=== PATIENT | female | born 1975 | race Caucasian/White ===

== ENCOUNTER 2017-02-01 05:46 | Day surgery (SDC) | payer OTHER ==
--- NOTE | 2017-01-31 16:34 | GHP ---
[f rep st] PREOP HISTORY AND PHYSICAL DATE OF ADMISSION: 02/01/2017 CHIEF COMPLAINT: Left plantar heel pain. HISTORY OF PRESENT ILLNESS: The patient is a 41-year-old with a history of persistent left plantar heel pain. She has had an exhaustive course of nonoperative treatment without any resolution of her symptoms. PAST MEDICAL HISTORY: Positive for asthma, depression, and sleep apnea. PAST SURGICAL HISTORY: Positive for carpal tunnel release. SOCIAL HISTORY: Negative for tobacco use. FAMILY HISTORY: Noncontributory. MEDICATIONS: Positive for citalopram, Claritin, and Low-Ogestrel. ALLERGIES: Augmentin, grass pollen, mold, penicillins, sulfa, and Zithromax. PHYSICAL EXAMINATION: GENERAL: She is normal appearing in health, in no acute distress. HEENT: Head is normocephalic. Pupils equal, round, reactive to light. Extraocular eye movements intact. NECK: Supple. No JVD or lymphadenopathy. CHEST: Clear to auscultation. HEART: Regular rate and rhythm. No murmurs or gallops. ABDOMEN: Soft, nontender, nondistended. GENITAL/RECTAL/BREAST: Deferred. EXTREMITIES: Approximately 10 degrees gastroc contracture. She has tenderness on the plantar aspect of her heel. ASSESSMENT: 1. Recalcitrant plantar fasciitis. 2. Left gastrocnemius contracture. PLAN: The patient is scheduled to undergo a gastrocnemius recession. /[id number]/MODL MTDD
[2017-02-01] MEDS ORDERED: CLINDAMYCIN 600 MG/DEXTROSE 50 ML IV ONE (06:00)
[2017-02-01] MEDS ORDERED: LIDOCAINE 1% 2 ML INJ ONE (06:14)
[2017-02-01] MEDS ORDERED: LR 1,000 ML IV ONE (06:19)
[2017-02-01] MEDS ORDERED: LIDOCAINE 1% 2 ML INJ ID PRN (06:19)
[2017-02-01] MEDS ORDERED: BUPIVACAINE 0.5% 30 ML SDV ONE (06:55)
[2017-02-01] MEDS ORDERED: MIDAZOLAM 2 MG/2 ML VIAL ONE (07:09)
[2017-02-01] MEDS ORDERED: ONDANSETRON 4 MG/2 ML VIAL ONE ×2 (07:11→09:52)
[2017-02-01] MEDS ORDERED: DEXAMETHASONE 4 MG/ML VIAL ONE (07:11)
[2017-02-01] MEDS ORDERED: KETOROLAC 30 MG/1 ML SDV ONE (07:11)
[2017-02-01] MEDS ORDERED: LIDOCAINE 2% 5 ML SDV ONE (07:11)
[2017-02-01] MEDS ORDERED: PROPOFOL 200 MG/20 ML VIAL ONE (07:12)
[2017-02-01] MEDS ORDERED: fentaNYL 100 MCG/2 ML INJ ONE ×2 (07:12→08:40)
[2017-02-01] MEDS ORDERED: MIDAZOLAM 2 MG/2 ML VIAL IVP ONE (07:16)
--- NOTE | 2017-02-01 07:18 | PDANEPAE ---
ANE History of Present Illness gastroc ANE Past Medical History - Cardiovascular History Hx Hypertension: No Hx Arrhythmias: No Hx Chest Pain: No Hx Coronary Artery / Peripheral Vascular Disease: No Hx CHF / Valvular Disease: No Hx Palpitations: No - Pulmonary History Hx COPD: No Hx Asthma/Reactive Airway Disease: No Hx Recent Upper Respiratory Infection: No Hx Oxygen in Use at Home: No - Neurologic History Hx Cerebrovascular Accident: No Hx Seizures: No Hx Dementia: No - Endocrine History Hx Diabetes: No - Renal History Hx Renal Disorders: No - Liver History Hx Hepatic Disorders: No - Neurological & Psychiatric Hx Hx Neurological and Psychiatric Disorders: Yes - Cancer History Hx Cancer: No - Congenital Disorder History Hx Congenital Disorders: No - GI History Hx Gastrointestinal Disorders: No - Chronic Pain History Chronic Pain: No ANE Review of Systems Review of systems is: negative - Exercise capacity METS (RN): 4 METS ANE Patient History - Allergies Allergies/Adverse Reactions: amoxicillin [From Augmentin] Allergy (Severe, Verified 01/31/17 16:23) Hives clavulanic acid [From Augmentin] Allergy (Severe, Verified 01/31/17 16:23) Hives Penicillins Allergy (Severe, Verified 01/31/17 16:23) Hives Sulfa (Sulfonamide Antibiotics) Allergy (Severe, Verified 01/31/17 16:23) Hives azithromycin Allergy (Intermediate, Verified 01/31/17 16:23) Hives grass pollen Allergy (Intermediate, Verified 01/31/17 16:25) Respiratory distress mold Allergy (Intermediate, Verified 01/31/17 16:25) Respiratory distress pollen extracts Allergy (Intermediate, Verified 01/31/17 16:28) Respiratory distress - Home Medications Home Medications: Bcp 01/28/17 [Last Taken 01/31/17 22:00] Celexa 01/28/17 [Last Taken 01/31/17 22:00] Claritin 01/28/17 [Last Taken 01/31/17 22:00] Multivitamin 01/28/17 [Last Taken 01/28/17] Probiotic 01/28/17 [Last Taken 01/31/17 22:00] - NPO status NPO Since - Liquids (Date): 01/31/17 NPO Since - Liquids (Time): 21:00 NPO Since - Solids (Date): 01/31/17 NPO Since - Solids (Time): 19:30 - Smoking Hx Smoking Status: Never smoked - Family Anes Hx Family Hx Anesthesia Complications: none ANE Labs/Vital Signs - Vital Signs Blood Pressure: 155/79 Heart Rate: 85 Respiratory Rate: 15 O2 Sat (%): 95 Height: 172.72 cm Weight: 145.15 kg ANE Physical Exam - Airway Mallampati Score: Class 2 Mouth exam: normal dental/mouth exam - Pulmonary Pulmonary: no respiratory distress - Cardiovascular Cardiovascular: regular rate and rhythym - ASA Status ASA Status: II ANE Anesthesia Plan Anesthesia Plan: GA w LMA
--- NOTE | 2017-02-01 07:21 | POSTOPPROG ---
Post Op Note Date of Operation: 02/01/17 Surgeon: Damion White Anesthesia: GET(General Endotracheal) Pre-op Diagnosis: L Gastrocnemius contracture Post-op Diagnosis: same Procedure: L Gastrocnemius recession Inf/Abcess present in the surg proc area at time of surgery?: No EBL: Minimal Complications: none
[2017-02-01] MEDS ORDERED: LR 500 ML IV PRN (07:37)
[2017-02-01] MEDS ORDERED: ACETAMINOPHEN 500 MG TAB PO PRN (07:37)
[2017-02-01] MEDS ORDERED: fentaNYL 100 MCG/2 ML INJ IVP PRN (07:37)
[2017-02-01] MEDS ORDERED: ALBUTEROL 3 ML DEYVIAL IH PRN (07:37)
[2017-02-01] MEDS ORDERED: ONDANSETRON 4 MG/2 ML VIAL IVP PRN (07:37)
[2017-02-01] MEDS ORDERED: NALOXONE HCL 0.4 MG/ML INJ IVP PRN ×2 (07:37→09:32)
--- NOTE | 2017-02-01 08:07 | POSTANESTH ---
Post Anesthetic Evaluation Cardiovascular Status: Normal, Stable Respiratory Status: Normal, Stable Level of Consciousness/Mental Status: Can Participate in Eval Pain Control: Adequate, Prn Tx Ordered Nausea/Vomiting Control: Adequate, Prn Tx Ordered Complications Possibly Related to Anesthesia: None Noted
[2017-02-01] MEDS ORDERED: OXYCODONE/APAP 5/325 TAB PO PRN (09:32)
[2017-02-01] MEDS ORDERED: OXYCODONE/APAP 5/325 TAB ONE (09:52)
[2017-02-01 10:10] VITALS: BP 126/84; PULSE 83; RESP 16; TEMP 98.4; O2SAT 93
--- NOTE | 2017-02-01 13:56 | GOP ---
[f rep st] OPERATIVE REPORT DATE OF OPERATION: 02/01/2017 SURGEON: Damion White MD ANESTHESIA: General. PREOPERATIVE DIAGNOSIS: 1. Left gastrocnemius recession. 2. Left recalcitrant plantar fasciitis. POSTOPERATIVE DIAGNOSIS: 1. Left gastrocnemius recession. 2. Left recalcitrant plantar fasciitis. PROCEDURE PERFORMED: Left gastrocnemius recession. FINDINGS: ESTIMATED BLOOD LOSS: Negligible. INDICATIONS: The patient is a 41-year-old with a history of persistent left plantar heel pain. Cli nically and radiographically she is known to have recalcitrant plantar fasciitis and gastroc contrac ture. Based on her persistence of symptoms, refractory to nonoperative treatment, she is interested in pursuing operative treatment. From an operative standpoint, a gastroc recession was recommended . The patient acknowledged she understood the potential risks of the operation, including but not l imited to, bleeding, infection, neurovascular damage, loss of limb function, pain, or functional hough itations despite operative treatment, and anesthetic risks. She acknowledged she understood the pot ential risks, planned procedure, postop plan well, and had all questions answered prior to surgery. She gave her consent for the operative procedure. DESCRIPTION OF PROCEDURE: The patient was brought to the operative room after IV antibiotics were a dministered. She was placed in a supine position, where general anesthetic was administered. An up per calf tourniquet was applied and the left lower leg was prepped and draped in standard sterile fa shion. After marking the incision, an Robson wrap exsanguination tourniquet was inflated to 250. A lo ngitudinal incision was made along the posterior medial aspect of the lower leg, just distal to the musculotendinous junction of the gastroc. Skin and subcutaneous tissue were sharply incised. Sharp dissection was carried through the superficial posterior compartment fascia along the skin incision . The gastroc tendon was bluntly dissected, retracted with a speculum, and transected distal to the musculotendinous junction. The subcutaneous tissue was closed with 3-0 Vicryl suture in interrupte d fashion. Skin was closed with 3-0 nylon interrupted vertical mattress sutures. 0.5% Marcaine with out epinephrine was injected in the wound sites. The wounds were dressed with sterile Adaptic, 4 x 4 and Opsite. The patient was placed in a fracture boot and taken to the recovery room, extubated, in stable condition postoperatively. All sponge, needle, and instrument counts were reported as oscar ng correct. DRAINS: None. COMPLICATIONS: None. PLAN: The patient will be discharged home, weightbearing as tolerated in her fracture boot. /[id number]/MODL
== END 2017-02-01 10:24 | disposition home or self-care (01) ==
LOC: FSGY 05:46
PROVIDERS: ATTEND Orthopaedic Surgery Foot and Ankle Surgery
PROC: 0LSP0ZZ Reposition Left Lower Leg Tendon, Open Approach (ICD-10-PCS; principal; 2017-02-01 07:15)
DX: M62.462 Contracture of muscle, left lower leg (principal); M72.2 Plantar fascial fibromatosis; J45.909 Unspecified asthma, uncomplicated; F32.9 Major depressive disorder, single episode, unspecified; G47.30 Sleep apnea, unspecified; Z88.0 Allergy status to penicillin; Z88.2 Allergy status to sulfonamides
CPT/HCPCS: J1100; J1885; J2250; J2405; J2704; J3010

== ENCOUNTER 2017-03-08 05:37 | Day surgery (SDC) | payer OTHER ==
[2017-03-08 06:08] VITALS: PULSE 82
[2017-03-08] MEDS ORDERED: LIDOCAINE 1% 2 ML INJ ID PRN (06:09)
[2017-03-08] MEDS ORDERED: LR 1,000 ML IV ONE (06:09)
[2017-03-08] MEDS ORDERED: LIDOCAINE 1% 2 ML INJ ONE (06:12)
[2017-03-08] MEDS ORDERED: MIDAZOLAM 2 MG/2 ML VIAL IVP ONE (06:50)
--- NOTE | 2017-03-08 06:50 | PDANEPAE ---
ANE Past Medical History - Cardiovascular History Hx Hypertension: No Hx Arrhythmias: No Hx Chest Pain: No Hx Coronary Artery / Peripheral Vascular Disease: No Hx CHF / Valvular Disease: No Hx Palpitations: No - Pulmonary History Hx COPD: No Hx Asthma/Reactive Airway Disease: No Hx Recent Upper Respiratory Infection: No Hx Oxygen in Use at Home: No Hx Sleep Apnea: Yes Sleep Apnea Screening Result - Last Documented: Positive Pulmonary History Comment: amanda positive instructed pt to bring to hospital - Neurologic History Hx Cerebrovascular Accident: No Hx Seizures: No Hx Dementia: No - Endocrine History Hx Diabetes: No Hypothyroid: No Hyperthyroid: No Obesity: severe - Renal History Hx Renal Disorders: No - Liver History Hx Hepatic Disorders: No - Neurological & Psychiatric Hx Hx Neurological and Psychiatric Disorders: Yes Neurological / Psychiatric History Comment: anxiety. depression - Cancer History Hx Cancer: No - Congenital Disorder History Hx Congenital Disorders: No - GI History Hx Gastrointestinal Disorders: No - Other Health History Other Health History: none - Chronic Pain History Chronic Pain: No - Surgical History Prior Surgeries: 02/01/17 left gastrocnemius muscle lengthening with [place]. lasik. right ankle and knee surgery x4. guerline. tonsillectomy ANE Review of Systems - Exercise capacity METS (RN): 4 METS ANE Patient History - Allergies Allergies/Adverse Reactions: amoxicillin [From Augmentin] Allergy (Severe, Verified 01/31/17 16:23) Hives clavulanic acid [From Augmentin] Allergy (Severe, Verified 01/31/17 16:23) Hives Penicillins Allergy (Severe, Verified 01/31/17 16:23) Hives Sulfa (Sulfonamide Antibiotics) Allergy (Severe, Verified 01/31/17 16:23) Hives azithromycin Allergy (Intermediate, Verified 01/31/17 16:23) Hives grass pollen Allergy (Intermediate, Verified 01/31/17 16:25) Respiratory distress mold Allergy (Intermediate, Verified 01/31/17 16:25) Respiratory distress pollen extracts Allergy (Intermediate, Verified 01/31/17 16:28) Respiratory distress Opioids - Morphine Analogues Allergy (Verified 03/08/17 06:22) Vomiting - Home Medications Home Medications: Bcp 01/28/17 [Last Taken 03/07/17] Celexa 01/28/17 [Last Taken 03/07/17] Claritin 01/28/17 [Last Taken 03/07/17] Multivitamin 01/28/17 [Last Taken 02/15/17] Probiotic 01/28/17 [Last Taken 03/07/17] - NPO status NPO Since - Liquids (Date): 03/08/17 NPO Since - Liquids (Time): 03:00 NPO Since - Solids (Date): 03/07/17 NPO Since - Solids (Time): 18:30 - Smoking Hx Smoking Status: Never smoked - Family Anes Hx Family Hx Anesthesia Complications: none ANE Labs/Vital Signs - Vital Signs Blood Pressure: 127/77 Heart Rate: 82 Respiratory Rate: 16 O2 Sat (%): 95 Height: 172.72 cm Weight: 145.15 kg ANE Physical Exam - Airway Neck exam: FROM Mallampati Score: Class 2 Mouth exam: normal dental/mouth exam - Pulmonary Pulmonary: no respiratory distress - Cardiovascular Cardiovascular: regular rate and rhythym - ASA Status ASA Status: III ANE Anesthesia Plan Anesthesia Plan: MAC
[2017-03-08] MEDS ORDERED: LR 500 ML IV PRN (07:48)
[2017-03-08] MEDS ORDERED: ONDANSETRON 4 MG/2 ML VIAL IVP PRN (07:48)
[2017-03-08] MEDS ORDERED: fentaNYL 100 MCG/2 ML INJ IVP PRN (07:48)
[2017-03-08] MEDS ORDERED: LABETALOL HCL 50 MG/10 ML SYR IVP PRN (07:48)
[2017-03-08] MEDS ORDERED: NALOXONE HCL 0.4 MG/ML INJ IVP PRN (07:48)
[2017-03-08 09:14] VITALS: BP 149/81; RESP 16; O2SAT 94
[2017-03-08 11:39] VITALS: TEMP 99.1
--- NOTE | 2017-03-08 20:39 | GOP ---
[f rep st] OPERATIVE REPORT DATE OF OPERATION: 03/08/2017 SURGEON: Tristen White MD PREOPERATIVE DIAGNOSIS: Right carpal tunnel syndrome. POSTOPERATIVE DIAGNOSIS: Right carpal tunnel syndrome. PROCEDURE PERFORMED: Right open carpal tunnel release. FINDINGS: ESTIMATED BLOOD LOSS: 1 cc. DESCRIPTION OF PROCEDURE: This is a very pleasant 41-year-old female who underwent a right open car pal tunnel release. DATA MANAGEMENT SPECIALIST: PA-C COMPLICATIONS: None. IMPLANTS: None. TOURNIQUET TIME: 21 minutes at 250 mmHg. /[id number]/MODL
== END 2017-03-08 09:58 | disposition home or self-care (01) ==
LOC: FSGY 05:37
PROVIDERS: ATTEND Orthopaedic Surgery Hand Surgery
PROC: 01N50ZZ Release Median Nerve, Open Approach (ICD-10-PCS; principal; 2017-03-08 07:15)
DX: G56.01 Carpal tunnel syndrome, right upper limb (principal); G47.33 Obstructive sleep apnea (adult) (pediatric); Z88.0 Allergy status to penicillin; Z88.2 Allergy status to sulfonamides